=== PATIENT | female | born 1990 | race Caucasian/White ===

== ENCOUNTER 2018-06-23 19:48 | Emergency (ER) | payer OTHER ==
[2018-06-23 20:03] VITALS: BP 140/62; PULSE 102; TEMP 98.5
[2018-06-23] MEDS ORDERED: DIPHTH,PERTUSS(ACELL),TET 0.5 ML DISP.SYRIN IM ONE (20:09)
[2018-06-23] MEDS ORDERED: IBUPROFEN 400 MG TABLET (FP) PO ONE ×2 (20:09)
--- NOTE | 2018-06-23 20:16 | PDOC ---
History of Present Illness - General Chief Complaint: Injury Stated Complaint: FINGER INJURY Time Seen by Provider: 06/23/18 20:08 History Source: Patient - History of Present Illness Occurred: reports: other Upper Extremity Pain Location: right: thumb Past History - Past Medical History Allergies/Adverse Reactions: Allergies Allergy/AdvReac Type Severity Reaction Status Date / Time No Known Allergies Allergy Verified 06/23/18 20:00 Home Medications: Ambulatory Orders NK [No Known Home Medication] 06/23/18 COPD: No - Suicide/Smoking/Psychosocial Hx Smoking History: Current every day smoker Number of Cigarettes Smoked Daily: 5 Information on smoking cessation initiated: No Review of Systems - Review of Systems Constitutional: No: Chills, Fever *Physical Exam - Vital Signs Last Vital Signs Temp Pulse Resp BP Pulse Ox 98.5 F 102 H 18 140/62 98 06/23/18 20:00 06/23/18 20:00 06/23/18 20:00 06/23/18 20:00 06/23/18 20:00 - Physical Exam General Appearance: Yes: Appropriately Dressed. No: Apparent Distress HEENT: positive: Normal Voice Extremity: positive: Other (subung hematoma w/ swelling exteding into proximal nail fold of r thumb, no finger deformity otherwise, FROMI) Integumentary: positive: Dry, Warm Neurologic: positive: Fully Oriented, Alert, Normal Mood/Affect Procedures - Nail Trephination Nail Trephination Location: R thumb Sterile Dressing Applied: Yes Finger Splint: Yes Progress: 06/23/18 20:13 significant bloody drainage s/p trephination ED Treatment Course - RADIOLOGY Radiology Studies Ordered: Category Date Time Status FINGER(S) RIGHT [RAD] Stat Radiology 06/23/18 20:09 Ordered Medical Decision Making - Medical Decision Making 06/23/18 20:26 28-year-old female, denies any past medical history, here with right thumb injury. Patient states she accidentally slammed finger into her car door 4 days ago. States she noticed dark discoloration to her nail, but but did not come to ED for unclear reasons. States she decided to come in today because there is now some swelling to cuticle area. No redness, pus, fever or chills. Patient well-appearing and stable with large area of subungual hematoma extending into proximal nail fold of R thumb that was trephinated with significant bloody drainage. Local wound care and splint given. X-ray done and negative for fracture. Dc to return as needed *DC/Admit/Observation/Transfer Diagnosis at time of Disposition: Subungual hematoma - Discharge Dispostion Disposition: HOME Condition at time of disposition: Improved - Referrals - Patient Instructions Printed Discharge Instructions: DI for Subungual Hematoma Additional Instructions: Your xray is negative for fracture There is a 50% chance you may lose your nail and if so, it can take up to 3 months to regrow Return for worsening pain, redness or discharge - Post Discharge Activity
== END 2018-06-23 20:46 | disposition home or self-care (01) ==
LOC: JERFT 19:48
PROC: 3E0234Z Introduction of Serum, Toxoid and Vaccine into Muscle, Percutaneous Approach (ICD-10-PCS; principal; 2018-06-23)
DX: S60.111A Contusion of right thumb with damage to nail, initial encounter (principal); W20.8XXA Other cause of strike by thrown, projected or falling object, initial encounter; Y93.89 Activity, other specified; Y92.410 Unspecified street and highway as the place of occurrence of the external cause; F17.210 Nicotine dependence, cigarettes, uncomplicated
CPT/HCPCS: 73140-TC-RT-FY; 90715; 99281-25